=== PATIENT | female | born 1970 | race Caucasian/White ===

== ENCOUNTER 2018-10-11 10:26 | Day surgery (SDC) | payer OTHER ==
[~2018-10-11 10:26] MED LIST: SOD CHLORIDE 0.9% 1,000 ML IV
[2018-10-11] MEDS: CLINDAMYCIN 600 MG/D5W (PMX) 50 ML IVPB (13:53)
[2018-10-11] MEDS ORDERED: MIDAZOLAM 1 MG/ML 2 ML INJ (13:58)
[2018-10-11] MEDS ORDERED: PROPOFOL 20 ML (14:41)
[2018-10-11] MEDS ORDERED: NEOSTIGMINE 3 MG/3 ML SYRINGE (14:41)
[2018-10-11] MEDS ORDERED: GLYCOPYRROLATE 0.4 MG INJ (14:41)
[2018-10-11] MEDS ORDERED: ROCURONIUM 50 MG INJ (14:41)
[2018-10-11] MEDS ORDERED: ONDANSETRON 4 MG INJ (14:41)
[2018-10-11] MEDS ORDERED: LIDOCAINE 2% (SDV) 5 ML INJ (14:41)
[2018-10-11] MEDS ORDERED: CLINDAMYCIN 600 MG/D5W (PMX) 50 ML IVPB (14:50)
[2018-10-11] MEDS: BUPIVACAINE 0.25% (MPF) 30 ML INJ (14:58)
[2018-10-11] MEDS ORDERED: DIPHENHYDRAMINE 50 MG INJ IV (15:00)
[2018-10-11] MEDS: HYDROCODONE/APAP (5/325) TAB PO (15:12)
[2018-10-11] MEDS: MEPERIDINE 25 MG INJ IV (15:12)
[2018-10-11] MEDS: ONDANSETRON 4 MG INJ IV (15:12)
[2018-10-11] MEDS: HYDROmorphONE 1 MG/5 ML IV SYRINGE IV ×3 (15:19→15:54)
[2018-10-11] MEDS: METOCLOPRAMIDE 10 MG INJ IV (15:51)
[2018-10-11] MEDS: FENTAnyl 50 MCG/ML VIAL IV (16:16)
== END 2018-10-11 17:04 | disposition home or self-care (01) ==
LOC: SDS 10:26
DX: K82.4 Cholesterolosis of gallbladder (principal)
CPT/HCPCS: 47562; 88304